=== PATIENT | female | born 1990 | race Caucasian/White ===

== ENCOUNTER 2022-09-10 05:21 | Emergency (ER) | payer OTHER, SELFPAY ==
--- NOTE | ~2022-09-10 | CT_ITS ---
EXAMINATION: CT abdomen pelvis wo con DATE: 09/10/2022 06:41 INDICATION: Left flank pain. TECHNIQUE: Computed tomography (CT) of the abdomen and pelvis was performed without intravenous contr ast. Automated exposure control and iterative reconstruction technique were employed. The dose-length product was 246.05 mGy-cm. COMPARISON: CT abdomen and pelvis 09/25/2019 FINDINGS: The visualized portions of the lung bases are clear without pneumonia or pleural effusion. The heart size is normal. No pericardial effusion. The liver is normal. There are changes of cholecys tectomy. The spleen, pancreas, adrenal glands, and right kidney are normal. There are 4 stones in lef t kidney measuring up to 5 mm. There is mild left hydronephrosis. There is an 11 mm stone in proximal left ureter. There are no dilated loops of bowel. The appendix is normal. There are no pathologicall y enlarged lymph nodes. There is physiologic fluid in the pelvis. There is mild lumbar spondylosis. IMPRESSION: 1. 11 mm stone in proximal left ureter with mild left hydronephrosis. 2. Nonobstructing left kidney stones. Reviewed, dictated and finalized at location A. TH CARE SANITARY TECHNICIAN
--- NOTE | ~2022-09-10 | XR_ITS ---
EXAMINATION: XR abdomen/kub 1V DATE: 09/10/2022 09:01 INDICATION: Urolithiasis. TECHNIQUE: A supine view of the abdomen on 3 radiographs was obtained. COMPARISON: CT abdomen and pelvis 09/10/2022 FINDINGS: There are no dilated loops of bowel. Surgical clips in the right upper quadrant are likely from cholecystectomy. There is an 11 mm stone in proximal left ureter. There are multiple stones in l eft kidney measuring up to 5 mm. IMPRESSION: 1. 11 mm stone in proximal left ureter. 2. Left kidney stones. Reviewed, dictated and finalized at location A. ERMAN
[2022-09-10 05:25] VITALS: BP 156/115; PULSE 98; RESP 22; TEMP 35.8; O2SAT 100
[2022-09-10] MEDS: ONDANSETRON INJ 4 MG/2 ML VIAL IV PUSH ×2 (05:30→06:42)
[2022-09-10] MEDS: SODIUM CHLORIDE 0.9% IV 1,000 ML 999 ML IV CONT (05:31)
[2022-09-10] MEDS: MORPHINE SULFATE (*CRX) 2 MG/ML INJ IV PUSH ×3 (05:32→06:42)
--- NOTE | 2022-09-10 05:42 | PC.NURSE ---
PT HAS CALMED DOWN, LIGHTS OFF, COOL WASH CLOTH PROVIDED, MOTHER AT BEDSIDE. IVF INFUSING ORDERED WITHOUT DIFFICULTY. PT REPORTS IT'S STUCK IN THIS ONE SPOT. WILL CONTINUE TO MONITOR.
--- NOTE | 2022-09-10 05:45 | PC.NURSE ---
PT IS CRYING AGAIN, ROLLING AROUND ON STRETCHER, ERP NOTIFIED. VO FOR 2MG MORPHINE GIVEN. WILL CONTINUE TO MONITOR.
[2022-09-10 05:55] LABS: Basophils Absolute Auto 0.07 K/mm3 (0.00-0.10); Basophils Percent Auto 0.7 % (0.0-1.0); Eosinophils Absolute Auto 0.42 K/mm3 (0.02-0.50); Eosinophils Percent Auto 4.2 % (1.0-6.0); Hemoglobin 12.1 g/dL (12.0-15.0); Immature Granulocyte Absolute 0.02 K/mm3 (0.00-0.00); Immature Granulocyte Percent A 0.2 % (0.0-0.0); Lymphocytes Absolute Auto 3.05 K/mm3 (1.10-4.50); Lymphocytes Percent Auto 30.3 % (18.0-42.0); Mean Corpuscular HGB Conc 33.6 g/dL (32.0-36.0); Mean Corpuscular Hemoglobin 30.7 pg (27.0-31.0); Mean Corpuscular Volume 91.4 fL (78.0-102.0); Monocytes Absolute Auto 0.76 K/mm3 (0.10-0.90); Monocytes Percent Auto 7.5 % (2.0-11.0); Neutrophils Absolute Auto 5.8 K/mm3 (1.7-7.2); Neutrophils Percent Auto 57.1 % (50.0-70.0); Platelet Count Result 334 K/mm3 (150-420); Red Blood Count 3.94 M/mm3 (4.20-5.40); Red Cell Distribution Width 13.3 % (11.6-14.4); White Blood Count 10.1 K/mm3 (4.8-10.8)
[2022-09-10 06:06] LABS: Appearance Urine Slightly Cloudy (Clear); Bilirubin Urine Negative (Negative); Blood Urine 2+ (Negative); Glucose Urine UA Negative (Negative); Ketones Urine Trace (Negative); Leukocyte Esterase Ur Trace (Negative); Nitrate Urine Negative (Negative); Protein Urine Negative (Negative); Specific Grav Ur 1.015 (1.010-1.020); Urobilinogen Urine 0.2 mg/dL (0.2-1.0)
[2022-09-10 06:07] LABS: SPREG INTERNAL CONTROL Positive; Serum Qual hCG Negative
[2022-09-10 06:10] LABS: Alanine Aminotransferase 17 U/L (14-59); Albumin Level 3.6 g/dL (3.4-5.0); Alkaline Phosphatase 62 U/L (46-116); Anion Gap 12 mmol/L (8-16); Aspartate Amino Transferase 17 U/L (15-37); Bilirubin,Total 0.4 mg/dL (0.00-1.00); Blood Urea Nitrogen 20 mg/dL (7-18); Calcium 8.8 mg/dL (8.5-10.1); Carbon Dioxide 23 mmol/L (21-32); Chloride 105 mmol/L (98-108); Estimated CRCL calculation 71 ml/min; Estimated Glomerular Filt Rate > 60; Glucose 93 mg/dL (70-99); Osmolality Calculated 292 mOsm/kg (285-295); Potassium 3.6 mmol/L (3.5-5.1); Sodium 140 mmol/L (136-145); Total Protein 6.7 g/dL (6.4-8.2)
[2022-09-10 06:14] LABS: Lipase 99 U/L (73-393)
[2022-09-10 06:15] LABS: Lactic Acid Reflex 1.2 mmol/L (0.4-2.0)
[2022-09-10 06:15] LABS: Add Urine Microscopic? YES; Color Urine Light Yellow (Yellow); RBC Urine 21-50 /hpf (0-2); Squamous Epithelial Cell Urine Few /hpf (Few); WBC Urine 0-3 /hpf (0-3)
[2022-09-10 06:16] LABS: Bacteria Urine 2+ /hpf
[2022-09-10 06:19] VITALS: BP 158/100; PULSE 88; RESP 18; O2SAT 98
--- NOTE | 2022-09-10 06:19 | PC.NURSE ---
PT WAS UP TO RR WITHOUT DIFFICULTY. MOTHER AT BEDSIDE. CT NOTIFIED PT IS READY FOR SCAN. WILL CONTINUE TO MONITOR.
--- NOTE | 2022-09-10 06:20 | ED.ABDPAIN ---
HPI - Abdominal Pain General Chief Complaint: Urogenital-Female Stated Complaint: lower flank kidney pain Time Seen by Provider: 09/10/22 05:23 Source: patient and RN notes reviewed Mode of arrival: ambulatory Limitations: no limitations History of Present Illness HPI narrative: left flank pain MD elicited complaint: flank pain Onset (ago): hour(s) (2) Pain Consistency: constant and colicky Location: L flank Severity: moderate Pain scale (0-10): 7 Quality: cramping and aching Radiation: back Exacerbating factors: nothing Relieving factors: nothing Associated symptoms: nausea Related Data Patient : No Home Medications Medication Instructions Recorded Confirmed Synthroid 100 mcg PO DAILY 09/25/19 09/10/22 Zoloft 75 mg PO DAILY 09/25/19 09/10/22 ferrous fumarate 325 mg (106 mg 325 mg PO DAILY 09/10/22 09/10/22 iron) tablet Allergies Allergy/AdvReac Type Severity Reaction Status Date / Time Penicillins Allergy Severe Difficulty Verified 09/10/22 12:14 Breathing Review of Systems Review of Systems: All systems reviewed & are unremarkable except as noted in HPI and below Constitutional: Constitutional: Reports no additional constitutional complaints Eyes: Eyes: Reports no additional eye complaints ENT: Reports system reviewed and no additional complaints, except as documented Cardiovascular: Cardiovascular: Reports no additional cardiovascular complaints Respiratory: Respiratory: Reports no additional respiratory complaints Gastrointestinal: Gastrointestinal: Reports no additional gastrointestinal complaints Genitourinary: Genitourinary: Reports no additional female genitourinary complaints and Reports flank pain Musculoskeletal: Musculoskeletal: Reports no additional musculoskeletal complaints Integumentary/Breasts: Skin/Breast: Reports system reviewed and no additional complaints, except as docu Neurologic: Reports system reviewed and no additional complaints, except as documented Psychiatric: Psychiatric: Reports no additional psychiatric complaints Endocrine: Endocrine: Reports no additional endocrine complaints Hematologic/Lymphatic: Hematologic/Lymphatic: Reports no additional hematologic/lymphatic complaints Allergic/Immunologic: Allergic/Immunologic: Reports no additional allergic/immunologic complaints [facility] Past Medical History Medical History (Updated 09/11/22 @ 10:54 by Lam Pandey MD) Depression Flank pain Hypothyroid Family History Family History Mother Hypertension Grandparent Cerebrovascular accident Grandparent Diabetes mellitus Grandparent Multiple myeloma Father Multiple myeloma Other Testicular cancer Social History Social History Smoking packs per day: 0.5 Smoking cigarettes per day: 10.0 Years smoked: 2 Smoking pack-years: 1.00 Smoking status: Former smoker Second hand tobacco smoke exposure: No Alcohol intake: current Drinks per week: 1 Substance use: current Substance use type: marijuana Lack of Transportation: No Lack of Food: Never True Current Housing: I Have Housing Concerned About Future Housing: No Difficulty Paying Gas/Electric Bills: No Difficulty Paying for Meds: No Currently Unemployed: No Education: Bachelor's Degree Difficulty w/ Childcare or Family Care: No Gender identity (if verbalized by the patient): Female Spiritual care concerns: No Agree to blood pr
--- NOTE | 2022-09-10 06:30 | PC.NURSE ---
PT IN CT AT THIS TIME, MOTHER HAS LEFT, IS TO RETURN. WILL CONTINUE TO MONITOR. CLONIDINE HELD AT THIS TIME, DUE TO BP COMING DOWN, WHEN PAIN COMES DOWN. WILL CONTINUE TO MONITOR.
--- NOTE | 2022-09-10 06:43 | PC.NURSE ---
pt returns from ct moaning, restless, nauseated, and reporting pain is worse. medications were administered as ordered without difficulty. will continue to monitor.
--- NOTE | 2022-09-10 06:51 | PC.NURSE ---
PT IS ANXIOUS, REPORTING IT HURTS TO BREATHE, FLAILING ABOUT ON STRETCHER, HYPERVENTILATING. PT PLACED ON O2 @ 2L. ERP IS NOTIFIED. PT REPORTS SHE NEEDS TO URINATE. BEDSIDE COMMODE PLACED AT BEDSIDE. PT REPORTS SX ARE RESOLVING, LASTING APPROX 3-4 MINUTES. PT IS THEN ASSISTED TO COMMODE. WILL CONTINUE TO MONITOR. PT THEN REMOVES HER O2.
--- NOTE | 2022-09-10 06:58 | PC.NURSE ---
PT DECLINED HER CLONIDINE, REPORTS SHE DOES NOT HAVE ANY BP ISSUES, REPORTS IT IS BECAUSE SHE IS IN PAIN. CALLED CORWIN, ENERGY CONSERVATION DIRECTOR AT [place] FOR POSSIBLE TRANSFER, SHE IS TO RETURN CALL. WILL CONTINUE TO MONITOR.
[2022-09-10 07:08] VITALS: BP 153/103; PULSE 77; RESP 18; O2SAT 100
--- NOTE | 2022-09-10 07:09 | PC.NURSE ---
REPORT TO HELADIO SCHERER, MOTHER AND PT ARE AWARE OF PLAN OF CARE.
--- NOTE | 2022-09-10 07:35 | PC.NURSE ---
Bryan Jonesshipyard painting supervisor from [place] called, she has been on the phone with [facility] since 07 and got disconnected. urologist is in surgery at this time and office opens at 0800. will continue to try and make contact.
[2022-09-10] MEDS: HYDROmorphone HCL INJ (*CRX) 2 MG/ML VIAL 0.5 MG IV PUSH (08:28)
[2022-09-10 08:34] VITALS: BP 136/96; PULSE 66; RESP 16; O2SAT 100
--- NOTE | 2022-09-10 08:39 | PC.NURSE ---
[facility] called back and is talking to [facility] at this time.
[2022-09-10] MEDS: levoFLOXacin 500 MG/D5W 100 ML 500 MG/100 ML BAG 100 MG IVPB (09:05)
[2022-09-10 09:46] LABS: SARS-CoV-2 Ag Negative (Negative)
[2022-09-10] MEDS: METOCLOPRAMIDE HCL INJ 10 MG/2 ML VIAL IV PUSH (09:59)
[2022-09-10 10:27] VITALS: BP 136/96; PULSE 67; RESP 16; TEMP 36.8; O2SAT 100
== END 2022-09-10 10:34 | disposition short-term general hospital (02) ==
PROVIDERS: Emergency Medicine; Emergency Provider Emergency Medicine
DX: N20.9 Urinary calculus, unspecified (principal); Z20.822 Contact with and (suspected) exposure to COVID-19
CPT/HCPCS: 36415; 74018; 74176; 80053; 81001; 83605; 83690; 84703; 85025; 87426; 96361; 96365; 96375; 96376; 99285; C9803; J1170; J1956; J2270; J2405; J2765; J7030

== ENCOUNTER 2022-09-10 11:06 | Inpatient (IN) | payer OTHER, SELFPAY ==
[2022-09-10] VITALS (14 sets, daily range): BP systolic 100–147; BP diastolic 65–101; PULSE 51–77; RESP 13–22; TEMP 35.8–36.6; O2SAT 95–100; BMI 28.6
--- NOTE | ~2022-09-10 | XR_ITS ---
EXAMINATION: XR retrograde pyelo w/stent LT INDICATION: Cystoscopy with left-sided retrograde and stent placement TECHNIQUE: 28 intraoperative fluoroscopic images are submitted for review. Total fluoroscopic time wa s 29.8 seconds. COMPARISON: None available FINDINGS: Retrograde pyelogram demonstrates a stone in the left renal pelvis. A left internal uretera l stent is placed in expected position. Please refer to procedure note for full details. IMPRESSION: 1. Left internal ureteral stent in expected position. Please refer to procedure note for full details . Reviewed, dictated and finalized at location F. [employer] SUPER[employer] IMPRESSION: 1. Left internal ureteral stent in expected position. Please refer to procedure note for full details.
--- NOTE | 2022-09-10 11:17 | ADMGEN ---
This patient, Jocelyn Arriaza, was admitted to [facility] Surg Room 316-02. Patient/family oriented to hospital policies and general routines including ID bracelet, bed and alarms, visiting hours, pain management, procedures, bathroom and other care routines, personal items, smoking policy, room service/diet, and visiting hours. Information on how to activate the Rapid Response Team has been discussed. Patient/Family are encouraged to report perceived risks to care and to ask questions if they do not understand what they are told or what they should do.
--- OUTSIDE RECORDS SUMMARY | 2022-09-10 11:33 | XMS_ITS | Continuity of Care Document ---
:1990 Author Organization [facility] Care Team Providers Name Role Phone [facility] Unavailable Unavailable Medications Combined list of outpatient medications from Department of Defense and Veterans Affairs facilities. Medications provided include 1) outpatient medications from the last 15 months, and 2) patient-reported medications. Medication Details Route Status Patient Prescription Prescription Last Ordering Order Source Instructions Expires Number Dispense Provider Date Date FLUCELVAX Active [id number] [facility] 07/26 / Pharmac QUAD 1 R, 2020 y Data [id number] Transac (flu tion vaccine Service quad Facilit [id number](2 y years and older)cell derived/PF) , 60MCG/.5ML, SYR[employer] .5 ml SYRINGE HYDROCORTIS Active [id number] [facility] / Pharmac ONE 2020 y Data (HYDROCORTI Transac SONE), tion 2.5%, Service CREAM(GM), Facilit TOPICAL, y [employer] 28 g TUBE LEVOTHYROXI Active [id number] [facility] / Pharmac
[2022-09-10] MEDS: SODIUM CHLORIDE 0.9% IV 1,000 ML 125 ML IV CONT (12:06)
[2022-09-10] MEDS: MORPHINE SULFATE (*CRX) 2 MG/ML INJ 1 MG IV PUSH (12:07)
[2022-09-10] MEDS: fentaNYL CITRATE INJ (*CRX) 100 MCG/2 ML VIAL 50 MCG IV PUSH ×2 (13:23→14:32)
--- NOTE | 2022-09-10 13:50 | PM.IMHP ---
H&P: HPI History of Present Illness Date/Time: 09/10/22 13:50 Chief Complaint: patient is a 32-year-old with back pain Narrative: patient 32-year-old who came to the hospital complaining of back/ left-sided flank pain. Pain started last night and patient post initially thought it was from constipation. Patient has history of anemia for which she takes iron pills but as the pain continued to get worse she came to the urgent care center. Patient was initially scanned and noted to have an 11 mm stone in the left ureter. Patient denied any urgency frequency of urination no hematuria no vaginal discharge no history of PID no history of an ovarian cyst. No fever chills nausea vomiting diarrhea. Review of Systems Review of Systems: All systems reviewed & are unremarkable except as noted in HPI and below PMFSH Past Medical History Medical History (Updated 09/10/22 @ 13:53 by Lam Pandey MD) Depression Flank pain HTN (hypertension) Hypothyroid Family History Family History Mother Hypertension Grandparent Cerebrovascular accident Grandparent Diabetes mellitus Grandparent Multiple myeloma Father Multiple myeloma Other Testicular cancer Social History Social History Smoking packs per day: 0.5 Smoking cigarettes per day: 10.0 Years smoked: 2 Smoking pack-years: 1.00 Smoking status: Former smoker Second hand tobacco smoke exposure: No Alcohol intake: current Drinks per week: 1 Substance use: current Substance use type: marijuana Lack of Transportation: No Lack of Food: Never True Current Housing: I Have Housing Concerned About Future Housing: No Difficulty Paying Gas/Electric Bills: No Difficulty Paying for Meds: No Currently Unemployed: No Education: Bachelor's Degree Difficulty w/ Childcare or Family Care: No Gender identity (if verbalized by the patient): Female Spiritual care concerns: No Agree to blood products: Yes Meds Home Medications and Allergies Home Medications Medication Instructions Recorded Confirmed Type Synthroid 100 mcg PO DAILY 09/25/19 09/10/22 History Zoloft 75 mg PO DAILY 09/25/19 09/10/22 History ferrous fumarate 325 mg (106 mg 325 mg PO DAILY 09/10/22 09/10/22 History iron) tablet Allergies Allergy/AdvReac Type Severity Reaction Status Date / Time Penicillins Allergy Severe Difficulty Verified 09/10/22 12:14 Breathing Vital Signs Vital Signs - 24 hr 09/10/22 12:02 09/10/22 12:03 Temperature 36.6 C Pulse Rate 66 66 Respiratory Rate 18 Blood Pressure 142/101 H Pulse Oximetry 100 Oxygen Delivery Room Air Exam Narrative: GENERAL: Well appearing, well-nourished, non-toxic, in no acute distress. HEAD: Normocephalic, atraumatic. NECK: Supple. No adenopathy, no masses. RESPIRATORY: Airway patent, respirations nonlabored. Clear to auscultation bilaterally, no rales, rhonchi, wheezing. CARDIOVASCULAR: Regular rate and rhythm without murmurs, rubs, or gallops. Peripheral pulses 2+ and equal bilaterally. ABDOMINAL: Soft, nontender, nondistended, no hepatosplenomegaly. Normoactive BS. MUSCULOSKELETAL: no Epigastric and no hypochondrial tenderness SKIN: Warm, dry, normal color. No rashes. NEURO: A&O X3. Moves all extremities PSYCHIATRIC: Appropriate mood and affect. Normal interaction. Assessment and Plan Assessment and plan (1) Urolithiasis: Qualifiers: Urinary calculus location: ureter Qualified Code(s): N20.1 - Calculus of ureter Code(s): N20.9 - Urinary calculus, unspecified Status: Acute (2) Flank pain: Code(s): R10.9 - Unspecified abdominal pain Status: Acute (3) Depression: Code(s): F32.9 - Major depressive disorder, single episode, unspecified Status: Acute (4) Hypothyroid: Code(s): E03.9 - Hypothyroidism, unspeci
[2022-09-10] MEDS: ONDANSETRON INJ 4 MG/2 ML VIAL IV PUSH (14:29)
--- NOTE | 2022-09-10 14:47 | WPDANESEPPF ---
Anes - Initial Pre Proc Eval Procedure: Operation Date: 09/11/22 11:30 Proposed Procedures p Left Extracorporeal Shock Wave Lithotripsy - Dayton Miller MD <Uli Smith MD - Last Filed: 09/11/22 10:24> Date/Time: 09/10/22 14:47 <Uli Smith MD - Last Filed: 09/11/22 10:24> Surgeon: Lam Pandey MD <Uli Smith MD - Last Filed: 09/11/22 10:24> Pre Op Diagnosis: KIDNEY STONE <Uli Smith MD - Last Filed: 09/11/22 10:24> Patient Data Age: 32 Gender: F Height: 1.65 m Weight: 78 kg <Uli Smith MD - Last Filed: 09/11/22 10:24> Last Vital Signs Temp 35.9 C L 09/10/22 14:00 Pulse 67 09/10/22 14:00 Resp 18 09/10/22 14:00 BP 125/75 09/10/22 14:00 Pulse Ox 97 09/10/22 14:00 O2 Del Method Room Air 09/10/22 12:03 <Uli Smith MD - Last Filed: 09/11/22 10:24> Allergies Allergy/AdvReac Type Severity Reaction Status Date / Time Penicillins Allergy Severe Difficulty Verified 09/10/22 12:14 Breathing <Uli Smith MD - Last Filed: 09/11/22 10:24> Home Medications Medication Instructions Recorded Confirmed Type Synthroid 100 mcg PO DAILY 09/25/19 09/10/22 History Zoloft 75 mg PO DAILY 09/25/19 09/10/22 History ferrous fumarate 325 mg (106 mg 325 mg PO DAILY 09/10/22 09/10/22 History iron) tablet <Uli Smith MD - Last Filed: 09/11/22 10:24> Patient hx anesthesia problems: none <Tino Hodges DO - Last Filed: 09/10/22 16:24> Family hx anesthesia problems: none <Tino Hodges DO - Last Filed: 09/10/22 16:24> Results Review: All pre-operative results and documents have been reviewed as part of the pre-operative evaluation. <Uli Smith MD - Last Filed: 09/11/22 10:24> [facility] Past Medical History Medical History: Medical History (Updated 09/11/22 @ 00:01 by Josh Hector) Depression Flank pain Hypothyroid <Uli Smith MD - Last Filed: 09/11/22 10:24> Family History Family History: Family History Mother Hypertension Grandparent Cerebrovascular accident Grandparent Diabetes mellitus Grandparent Multiple myeloma Father Multiple myeloma Other Testicular cancer <Uli Smith MD - Last Filed: 09/11/22 10:24> Social History Social History: Social History Smoking packs per day: 0.5 Smoking cigarettes per day: 10.0 Years smoked: 2 Smoking pack-years: 1.00 Smoking status: Former smoker Second hand tobacco smoke exposure: No Alcohol intake: current Drinks per week: 1 Substance use: current Substance use type: marijuana Lack of Transportation: No Lack of Food: Never True Current Housing: I Have Housing Concerned About Future Housing: No Difficulty Paying Gas/Electric Bills: No Difficulty Paying for Meds: No Currently Unemployed: No Education: Bachelor's Degree Difficulty w/ Childcare or Family Care: No Gender identity (if verbalized by the patient): Female Spiritual care concerns: No Agree to blood products: Yes <Uli Smith MD - Last Filed: 09/11/22 10:24> Anes - Eval Final PreProcedure Day of Procedure 09/10/22 14:47 <Uli Smith MD - Last Filed: 09/11/22 10:24> Patient weight: obese <Uli Smith MD - Last Filed: 09/11/22 10:24> Heart: regular rate and rhythm <Uli Smith MD - Last Filed: 09/11/22 10:24> Lungs: clear to auscultation <Uli Smith MD - Last Filed: 09/11/22 10:24> Airway: Mallampati scale class II <Uli Smith MD - Last Filed: 09/11/22 10:24> Neurological: alert and oriented <Uli Smith MD - Last Filed: 09/11/22 10:24> Last oral intake: >/= 8 hours <Uli Smith MD - Last Filed: 09/11/22 10:24> ASA classification:
[2022-09-10 14:56] LABS: Hematocrit 39.3 % (37.0-47.0); Hemoglobin 13.2 g/dL (12.0-15.0); Mean Corpuscular HGB Conc 33.6 g/dl (32-36); Mean Corpuscular Hemoglobin 29.8 pg (26-34); Mean Corpuscular Volume 88.7 fl (80-100); Mean Platelet Volume 9.2 fl (7.4-10.4); Platelet Count Result 343 k/mm3 (150-375); Red Blood Count 4.43 M/mm3 (4.2-5.4); Red Cell Distribution Width 13.3 % (11.5-14.5); White Blood Count 13.3 K/mm3 (4.5-10.0)
[2022-09-10 15:05] LABS: Alanine Aminotransferase 24 U/L (6-35); Albumin Level 4.5 g/dL (3.5-5.1); Alkaline Phosphatase 69 U/L (38-126); Anion Gap 15 mmol/L (8-16); Aspartate Amino Transferase 31 U/L (14-36); Bilirubin,Total 0.9 mg/dL (0.2-1.3); Blood Urea Nitrogen 16 mg/dL (7-17); Carbon Dioxide 20 mmol/L (22-30); Chloride 104 mmol/L (98-107); Estimated CRCL calculation 67 ml/min; Estimated Glomerular Filt Rate 58; Glucose 92 mg/dL (65-110); Potassium 3.6 mmol/L (3.4-5.0); Sodium 139 mmol/L (137-145)
--- NOTE | 2022-09-10 15:08 | WPDURCON ---
Assessment and Plan Assessment and plan (1) Urolithiasis: Qualifiers: Urinary calculus location: ureter Qualified Code(s): N20.1 - Calculus of ureter Code(s): N20.9 - Urinary calculus, unspecified Status: Acute Assessment and Plan: Obtain Consent:Cystoscopy with left stent placement, left retrograde pyelogram. Left ESWL Keep NPO, NPO after midnight. Ok to alternate between Valium 5mg and Fentanyl 50mg PRN. (2) Flank pain: Code(s): R10.9 - Unspecified abdominal pain Status: Acute Urology Consult Note HPI Date Seen: 09/10/22 Time Seen: 13:30 Requesting Physician: Lam Pandey MD Primary Care Provider: VICTOR Consult Narrative Reason for consult: Left Proximal Ureteral Stone Narrative: Jocelyn Arriaza is a 32 year old female who presented to the ER in [place] this morning with acute onset of left flank pain that radiates to the left inguinal canal. This is accompanied by nausea and vomiting. She denies dysuria, frequency, urgency. She has a WBC of 11.9, creatinine of 1.03. Her UA shows RBC's and trace leukocytes. A urine culture is pending. She had a CT scan which showed a left UPJ stone measuring 11mm that is visible on KUB. She was transferred to [facility] for further evaluation. She has uncontrolled pain with this stone, and has been given Morphine and Dilaudid, which both caused chest pain and facial pain. The ambulance then gave her 75mg of Fentanyl which helped for a short time then wore off quickly. She was then given IV Tylenol and Fentanyl again on the floor when she arrived and she continued to have severe pain. Review of Systems Cardiovascular: Cardiovascular: Denies chest pain Respiratory: Respiratory: Reports no additional respiratory complaints Gastrointestinal: Gastrointestinal: Reports abdominal pain, Reports nausea and Reports vomiting Genitourinary: Genitourinary: Denies hematuria, Denies nocturia, Denies dysuria, Denies pelvic pain, Reports flank pain, Denies urinary hesitancy and Denies urinary urgency [facility] Past Medical History Medical History Depression Flank pain HTN (hypertension) Hypothyroid Family History Family History Mother Hypertension Grandparent Cerebrovascular accident Grandparent Diabetes mellitus Grandparent Multiple myeloma Father Multiple myeloma Other Testicular cancer Social History Social History Smoking packs per day: 0.5 Smoking cigarettes per day: 10.0 Years smoked: 2 Smoking pack-years: 1.00 Smoking status: Former smoker Second hand tobacco smoke exposure: No Alcohol intake: current Drinks per week: 1 Substance use: current Substance use type: marijuana Lack of Transportation: No Lack of Food: Never True Current Housing: I Have Housing Concerned About Future Housing: No Difficulty Paying Gas/Electric Bills: No Difficulty Paying for Meds: No Currently Unemployed: No Education: Bachelor's Degree Difficulty w/ Childcare or Family Care: No Gender identity (if verbalized by the patient): Female Spiritual care concerns: No Agree to blood products: Yes Meds Home Medications and Allergies Home Medications Medication Instructions Recorded Confirmed Type Synthroid 100 mcg PO DAILY 09/25/19 09/10/22 History Zoloft 75 mg PO DAILY 09/25/19 09/10/22 History ferrous fumarate 325 mg (106 mg 325 mg PO DAILY 09/10/22 09/10/22 History iron) tablet Allergies Allergy/AdvReac Type Severity Reaction Status Date / Time Penicillins Allergy Severe Difficulty Verified 09/10/22 12:14 Breathing Vital Signs Vital Signs - 24 hr 09/10/22 12:02 09/10/22 12:03 09/10/22 14:00 Temperature 97.9 F 96.6 F L Pulse Rate 66 66 67 Respiratory Rate 18 18 Blood Pressur
[2022-09-10 15:11] LABS: Appearance Urine Clear (Clear); Bilirubin Urine Negative (Negative); Blood Urine 2+ (Negative); Color Urine Yellow (Yellow); Glucose Urine UA Negative (Negative); Ketones Urine 2+ mg/dL (Negative); Leukocyte Esterase Ur Negative LEU/UL (Negative); Nitrate Urine Negative (Negative); Protein Urine Trace mg/dL (Negative); Specific Grav Ur 1.025 (1.001-1.035); Urobilinogen Urine 0.2 mg/dL (<2.0)
[2022-09-10 15:18] LABS: RBC Urine 51-75 /hpf (0-2); Squamous Epithelial Cell Urine Rare /hpf (Few)
[2022-09-10 15:19] LABS: Add Urine Microscopic? YES
[2022-09-10] MEDS: diazePAM INJ (*CRX) 10 MG/2 ML SYRINGE 5 MG IV PUSH (15:22)
--- NOTE | 2022-09-10 15:41 | WPDANESEPPF ---
Anes - Initial Pre Proc Eval Procedure: Operation Date: 09/10/22 17:30 Proposed Procedures p Cystoscopy, Left Stent Placement - Dayton Miller MD Date/Time: 09/10/22 15:41 Surgeon: Lam Pandey MD Pre Op Diagnosis: KIDNEY STONE Patient Data Age: 32 Gender: F Height: 1.65 m Weight: 78 kg Last Vital Signs Temp 36.2 C L 09/10/22 14:59 Pulse 77 09/10/22 14:59 Resp 22 H 09/10/22 14:59 BP 141/98 H 09/10/22 14:59 Pulse Ox 100 09/10/22 14:59 O2 Del Method Room Air 09/10/22 12:03 Allergies Allergy/AdvReac Type Severity Reaction Status Date / Time Penicillins Allergy Severe Difficulty Verified 09/10/22 12:14 Breathing Home Medications Medication Instructions Recorded Confirmed Type Synthroid 100 mcg PO DAILY 09/25/19 09/10/22 History Zoloft 75 mg PO DAILY 09/25/19 09/10/22 History ferrous fumarate 325 mg (106 mg 325 mg PO DAILY 09/10/22 09/10/22 History iron) tablet Laboratory Tests 09/10/22 09/10/22 09/10/22 14:41 14:41 14:41 WBC 13.3 K/mm3 H K/mm3 (4.5-10.0) RBC 4.43 M/mm3 M/mm3 (4.2-5.4) Hgb 13.2 g/dL g/dL (12.0-15.0) Hct 39.3 % % (37.0-47.0) MCV 88.7 fl fl (80-100) MCH 29.8 pg pg (26-34) MCHC 33.6 g/dl g/dl (32-36) RDW 13.3 % % (11.5-14.5) Plt Count 343 k/mm3 k/mm3 (150-375) MPV 9.2 fl fl (7.4-10.4) Sodium 139 mmol/L mmol/L (137-145) Potassium 3.6 mmol/L mmol/L (3.4-5.0) Chloride 104 mmol/L mmol/L (98-107) Carbon Dioxide 20 mmol/L L mmol/L (22-30) Anion Gap 15 mmol/L mmol/L (8-16) BUN 16 mg/dL mg/dL (7-17) Creatinine 1.10 mg/dL H mg/dL (0.7-1.0) Estim Creat Clear Calc 67 ml/min ml/min Estimated GFR 58 L (59 - ) Glucose 92 mg/dL mg/dL (65-110) Calcium 9.0 mg/dL mg/dL (8.4-10.2) Total Bilirubin 0.9 mg/dL mg/dL (0.2-1.3) AST 31 U/L U/L (14-36) ALT 24 U/L U/L (6-35) Alkaline Phosphatase 69 U/L U/L (38-126) Total Protein 7.0 g/dL g/dL (6.3-8.2) Albumin 4.5 g/dL g/dL (3.5-5.1) TSH (Reflex) Pending Urine Color Urine Appearance Urine pH Ur Specific [place] Urine Protein Urine Glucose (UA) Urine Ketones Ur Blood (Man) Urine Nitrate Urine Bilirubin Urine Urobilinogen Leukocyte Esterase Rfl Urine RBC Urine WBC Ur Squamous Epith Cells 09/10/22 15:01 WBC RBC Hgb Hct MCV MCH MCHC RDW Plt Count MPV Sodium Potassium Chloride Carbon Dioxide Anion Gap BUN Creatinine Estim Creat Clear Calc Estimated GFR Glucose Calcium Total Bilirubin AST ALT Alkaline Phosphatase Total Protein Albumin TSH (Reflex) Urine Color Yellow (Yellow) Urine Appearance Clear (Clear) Urine pH 7.0 (5.0-9.0) Ur Specific [place] 1.025 (1.001-1.035) Urine Protein Trace mg/dL mg/dL (Negative) Urine Glucose (UA) Negative mg/dL mg/dL (Negative) Urine Ketones 2+ mg/dL H mg/dL (Negative) Ur Blood (Man) 2+ H (Negative) Urine Nitrate Negative (Negative) Urine Bilirubin Negative (Negative) Urine Urobilinogen 0.2 mg/dL mg/dL (<2.0) Leukocyte Esterase Rfl Negative RACHEAL/UL RACHEAL/UL (Negative) Urine RBC 51-75 /hpf H /hpf (0-2) Urine WBC 7-9 /hpf H /hpf Ur Squamous Epith Cells Rare /hpf /hpf (Few) Results Review: All pre-operative results and documents have been reviewed as part of the pre-operative evaluation. [facility]
--- NOTE | 2022-09-10 15:50 | PC.NURSE ---
To OR via stretcher.
[2022-09-10] MEDS: LACTATED RINGERS 1,000 ML 30 ML IV CONT ×2 (16:12→17:47)
--- NOTE | 2022-09-10 17:09 | WPDHPUPDATE1 ---
History and Physical Update Update Date/Time: 09/10/22 17:09 History and Physical has been reviewed, including an updated exam of the patient. There are NO changes in the patient's condition. Risks, benefits, and alternatives have been discussed and questions answered. Patient agrees to proceed with procedure.
[2022-09-10] MEDS: ceFAZolin 2 GM/D5W 50 ML 2 GM/50 ML BAG IVPB (17:17)
[2022-09-10] MEDS: LIDOCAINE HCL 2% GEL UROJET 10 ML PKG MUCOUS MEM (17:25)
--- NOTE | 2022-09-10 17:34 | W.PM.PROC2 ---
Procedure Note - Detailed Date of Procedure 09/10/22 Pre-op Diagnosis Left ureteral stone Post-op Diagnosis Same Procedure Performed cystoscopy, left retrograde pyelography and left ureteral stent placement Surgeon Dayton Miller MD Anesthesia General Description of Procedure after the uneventful induction of a general LMA anesthetic was placed the draped in routine sterile fashion while in a dorsal lithotomy position. Cystoscopy is undertaken with a 19 F rigid cystoscope. Bladder neck and urethra endoscopically normal. There was no intravesical foreign body neoplasm. A 0.035 in glidewire was advanced beyond the calcified 11 mm left proximal ureteral stone into the renal pelvis. The angiographic catheter was used to obtain a retrograde pyelogram and ensure appropriate positioning of a 4.8 F variable length double-J ureteral stent. Scopes and wires were removed. Urine Output 300 Drains Yes Packing No Pathology None sent Complications No immediate complications
--- NOTE | 2022-09-10 18:25 | PC.NURSE ---
Back from OR via stretcher. Walked to the restroom and voided.
[2022-09-10 18:27] LABS: Free T4 Free Thyroxine Reflex 1.51 ng/dL (0.78-2.19)
[2022-09-10] MEDS: DOCUSATE SODIUM 100 MG CAPSULE PO (18:34)
[2022-09-10 20:00] LABS: Total Triiodothyronine (T3) 1.12 NG/ML (0.97-1.69)
[2022-09-10] MEDS: HYDROmorphone HCL INJ (*CRX) 1 MG/ML SYR 0.5 MG IV PUSH (23:36)
[2022-09-11] VITALS (12 sets, daily range): BP systolic 110–135; BP diastolic 69–93; PULSE 52–88; RESP 11–18; TEMP 36.5–37; O2SAT 98–100
[2022-09-11] MEDS: ACETAMINOPHEN 325 MG TABLET 650 MG PO ×2 (04:00→14:52)
[2022-09-11] MEDS: HYDROmorphone HCL INJ (*CRX) 1 MG/ML SYR 0.5 MG IV PUSH ×3 (06:44→11:25)
[2022-09-11] MEDS: SODIUM CHLORIDE 0.9% IV 1,000 ML 125 ML IV CONT (06:47)
[2022-09-11] MEDS: LEVOTHYROXINE SODIUM 100 MCG TABLET PO (06:48)
--- NOTE | 2022-09-11 10:52 | PM.IMPN ---
Progress Note: A&P Assessment and Plan (1) Renal calculus, left: Code(s): N20.0 - Calculus of kidney Status: Acute (2) Depression: Code(s): F32.9 - Major depressive disorder, single episode, unspecified Status: Acute (3) Hypothyroid: Code(s): E03.9 - Hypothyroidism, unspecified Status: Acute (4) Flank pain: Code(s): R10.9 - Unspecified abdominal pain Status: Acute Plan Patient had stent placement yesterday going for lithotripsy today patient is pain-free. Will continue IV antibiotics right now. Possible discharge once cleared by Urology DVT prophylaxis. GI prophylaxis. All records reviewed Discussed plan of care with the nursing staff and with the patient in detail. Answered all questions and concerns from the patient. All labs have been reviewed. Code status updated dictation may have been done utilizing a voice recognition system. Attempts have been made to correct errors. However, there may be uncorrected grammatical, spelling, and recognition errors present. Subjective Date/time seen: 09/11/22 10:52 Interval history: Low back pain much better status post stent placement for renal stone Exam Narrative: GENERAL: Well appearing, well-nourished, non-toxic, in no acute distress. HEAD: Normocephalic, atraumatic. NECK: Supple. No adenopathy, no masses. RESPIRATORY: Airway patent, respirations nonlabored. Clear to auscultation bilaterally, no rales, rhonchi, wheezing. CARDIOVASCULAR: Regular rate and rhythm without murmurs, rubs, or gallops. Peripheral pulses 2+ and equal bilaterally. ABDOMINAL: Soft, nontender, nondistended, no hepatosplenomegaly. Normoactive BS. MUSCULOSKELETAL: no Epigastric and no hypochondrial tenderness SKIN: Warm, dry, normal color. No rashes. NEURO: A&O X3. Moves all extremities PSYCHIATRIC: Appropriate mood and affect. Normal interaction. Objective Data Vital Signs Vital Signs: Vital Signs - 24 hr 09/10/22 12:02 09/10/22 12:03 09/10/22 14:00 Temperature 36.6 C 35.9 C L Pulse Rate 66 66 67 Respiratory Rate 18 18 Blood Pressure 142/101 H 125/75 Pulse Oximetry 100 97 Oxygen Delivery Room Air Oxygen Flow Rate 09/10/22 14:59 09/10/22 16:07 09/10/22 17:42 Temperature 36.2 C L 36.4 C 36.6 C Pulse Rate 77 62 61 Respiratory Rate 22 H 20 21 H Blood Pressure 141/98 H 136/95 H 126/75 Pulse Oximetry 100 100 100 Oxygen Delivery Room Air Simple Face Mask Oxygen Flow Rate 6 09/10/22 17:55 09/10/22 18:05 09/10/22 18:13 Temperature Pulse Rate 60 53 L 55 L Respiratory Rate 13 13 16 Blood Pressure 100/69 116/65 109/74 Pulse Oximetry 100 100 99 Oxygen Delivery Simple Face Mask Room Air Room Air Oxygen Flow Rate 6 09/10/22 18:25 09/10/22 18:40 09/10/22 20:04 Temperature 36.0 C L 35.8 C L 36.2 C L Pulse Rate 63 51 L 51 L Respiratory Rate 18 18 18 Blood Pressure 124/81 147/82 H 143/92 H Pulse Oximetry 100 97 96 Oxygen Delivery Oxygen Flow Rate 09/10/22 20:00 09/10/22 23:15 09/11/22 04:00 Temperature 36.2 C L 36.3 C L 36.5 C Pulse Rate 51 L 54 L 54 L Respiratory Rate 18 18 18 Blood Pressure 143/93 H 111/68 110/71 Pulse Oximetry 96 95 98 Oxygen Delivery Oxygen Flow Rate 09/11/22 04:05 09/11/22 08:00 09/11/22 10:16 Temperature 36.5 C 37.0 C 36.8 C Pulse Rate 54 L 52 L 58 L Respiratory Rate 18 16 16 Blood Pressure 110/71 122/84 125/84 Pulse Oximetry 98 100 100 Oxygen Delivery Room Air Oxygen Flow Rate Intake/Output Intake/Output: Intake & Output 09/08/22 09/09/22 09/10/22 09/11/22 23:59 23:59 23:59 23:59 Intake Total 1450 0 Output Total 600 Balance 850 0 Meds/Results Medications: Active Medications Generic Name Dose Route Start Last Admin Trade Name Freq PRN Reason Stop Dose Admin Acetaminophen 650 mg 09/10/22 13:56 09/11/22 04:00 Acetaminophen 325 Mg Tablet PO 650 mg Q4H PRN Administration Mild Pain (1-3) or Fever Do
--- NOTE | 2022-09-11 11:10 | WPDHPUPDATE1 ---
History and Physical Update Update Date/Time: 09/11/22 11:10 History and Physical has been reviewed, including an updated exam of the patient. There are NO changes in the patient's condition. Risks, benefits, and alternatives have been discussed and questions answered. Patient agrees to proceed with procedure. Plan today: left ESWL
--- NOTE | 2022-09-11 12:04 | W.PM.PROC2 ---
Procedure Note - Detailed Date of Procedure 09/11/22 Pre-op Diagnosis Left kidney stone Post-op Diagnosis Same Procedure Performed Left ESWL Surgeon Dayton Miller MD Anesthesia General Description of Procedure The patient was brought to the operative suite where he was placed in the supine position on the Dornier lithotripsy table. The focal point of the lithotripter was placed at a 13mm left renal pelvic calculus. A total of 2500 shocks were delivered at a power setting of 4. There appeared to be good fragmentation of the stone. The patient tolerated the procedure well and was taken to the recovery room in good condition. Urine Output 300 Packing No Pathology Yes Complications No immediate complications Condition Stable Disposition PACU
[2022-09-11] MEDS: LACTATED RINGERS 1,000 ML 30 ML IV CONT (12:34)
[2022-09-11] MEDS: ONDANSETRON INJ 4 MG/2 ML VIAL IV PUSH (12:41)
[2022-09-11] MEDS: DOCUSATE SODIUM 100 MG CAPSULE PO (14:53)
--- NOTE | 2022-09-11 15:10 | SUR.PHASEI ---
1330: Patient told RN she didn't have to call and give an update to mom at this time.
--- NOTE | 2022-09-11 16:29 | PM.DS ---
DS: Admitting Diagnosis Discharge Date 09/11/22 Admitting Diagnosis hydronephrosis DS: Discharge Diagnosis Discharge Diagnosis (1) Renal calculus, left: Code(s): N20.0 - Calculus of kidney Status: Acute (2) Depression: Code(s): F32.9 - Major depressive disorder, single episode, unspecified Status: Acute (3) Hypothyroid: Code(s): E03.9 - Hypothyroidism, unspecified Status: Acute (4) Flank pain: Code(s): R10.9 - Unspecified abdominal pain Status: Acute (5) Chronic cholecystitis with calculus: Code(s): K80.10 - Calculus of gallbladder with chronic cholecystitis without obstruction Status: Acute DS: Summary Hospital Course Hospital Course: pt admitted for flank pain. saw urology and a lithotripsy and S/p stent Time spent discussing smoking cessation with patient: more than 10 minutes Status at Discharge Functional status at discharge: independent ambulation Overall status at discharge: patient is back to baseline Time Spent with Patient Time attestation: Total time spent providing and/or coordinating discharge services: Exam Const: General: comfortable HENMT: Ears: TM's normal bilaterally Mouth: Yes moist mucous membranes Eyes: General: appearance normal, both eyes and all related structures Pupils: Equal, round and reactive pupils present Neck: Neck: supple and no JVD Resp: Effort & Inspection: normal respiratory effort Auscultation: clear to auscultation bilaterally Cardio: Rate: regular rate Rhythm: regular rhythm GI: GI Palp: Yes Soft to palpation, No Tenderness to palpation present (GI) and No Guarding due to palpation present (GI) : External Female Exam: normal external appearance Neuro: General: gait normal Motor exam (neuro): 5/5 motor strength present throughout Sensory Exam: normal sensation Extrem: General: normal to inspection and no pedal edema DS: Data Data Completed and Pending Labs on day of discharge: Labs from last 24 hours 09/10/22 09/10/22 14:41 14:41 Free T4 1.51 Total T3 1.12 Preliminary micro results at discharge 09/10/22 18:50 Blood Culture - Preliminary Blood Discharge Plan Discharge Attending physician on discharge: Lam Pandey Consulting providers: Dayton Miller Discharging Clinician: Dayton Miller Patient Disposition: Home Health Service Activity: other - see discharge instructions Diet: other - see discharge instructions Discharge Instructions: 1) Activity: No driving or important decisions [id number]. No lifting/straining >15lbs. [id number]. 2) Strain urine until one stone fragment retrieved. Bring that fragment to your follow-up visit. 3) Diet: resume normal pre-admission diet. 4) Follow-up: 2-3 weeks with [facility] / call for appointment ([phone]) Patient Instructions: Antibiotic Form Stand Alone Forms: General Discharge Information Follow-up/Referrals: Dayton Miller MD [Physician] - Discharge Medications: New hydrocodone-acetaminophen 5-325 mg tablet 1 - 2 tablet PO Q6H PRN (Reason: pain) Qty: 24 0RF sulfamethoxazole-trimethoprim 800-160 mg tablet 1 tablet PO Q12H Qty: 6 0RF Continued Zoloft tablet 75 mg PO DAILY Synthroid 100 mcg PO DAILY ferrous fumarate 325 mg (106 mg iron) Tablet 325 mg PO DAILY Other Ambulatory Orders: XR abdomen/kub 1V (Routine) Timeframe: 2 Weeks Location: Determined by Patient Ordered By: Dayton Miller Date of admission: 09/10/22 13:56 Primary Care Provider: AURORA, Admitting Provider: Lam Pandey Attending physician on admission: Lam Pandey Condition: Improved
== END 2022-09-11 17:25 | disposition home or self-care (01) | DRG 660 ==
PROVIDERS: Nurse Practitioner Adult Health; Urology; Admitting Provider Internal Medicine; Visit Provider Internal Medicine
PROC: 0T778DZ Dilation of Left Ureter with Intraluminal Device, Via Natural or Artificial Opening Endoscopic (ICD-10-PCS; CPT 52352; principal; 2022-09-10 17:30)
PROC: 0TC48ZZ Extirpation of Matter from Left Kidney Pelvis, Via Natural or Artificial Opening Endoscopic (ICD-10-PCS; CPT 50590; principal; 2022-09-11 11:30)
DX: N20.2 Calculus of kidney with calculus of ureter (principal); K80.10 Calculus of gallbladder with chronic cholecystitis without obstruction; F32.9 Major depressive disorder, single episode, unspecified; E03.9 Hypothyroidism, unspecified; I10 Essential (primary) hypertension; Z79.899 Other long term (current) drug therapy; Z79.52 Long term (current) use of systemic steroids; Z79.890 Hormone replacement therapy; Z88.0 Allergy status to penicillin; Z87.891 Personal history of nicotine dependence; Z83.3 Family history of diabetes mellitus; Z80.43 Family history of malignant neoplasm of testis; Z82.49 Family history of ischemic heart disease and other diseases of the circulatory system
CPT/HCPCS: 36415; 74420; 80053; 81001; 84439; 84443; 84480; 85027; 87040; 87086; A9270; C1758; C1769; C2617; G0378; G0379; J0131; J0330; J0690; J1100; J1170; J2250; J2270; J2405; J2704; J3010; J3360; J7030; J7120

== ENCOUNTER 2022-09-18 10:42 | Emergency (ER) | payer OTHER, SELFPAY ==
[2022-09-18 11:21] VITALS: BP 136/95; PULSE 70; RESP 16; TEMP 36.8; O2SAT 100
[2022-09-18 11:39] LABS: Appearance Urine Clear (Clear); Bilirubin Urine Negative (Negative); Blood Urine 3+ (Negative); Color Urine Yellow (Yellow); Glucose Urine UA Negative (Negative); Ketones Urine Negative (Negative); Leukocyte Esterase Ur 1+ LEU/UL (Negative); Nitrate Urine Negative (Negative); Protein Urine 2+ mg/dL (Negative); Urobilinogen Urine 0.2 mg/dL (<2.0); pH Urine >=9.0 (5.0-9.0)
[2022-09-18 11:40] LABS: Basophils Absolute Auto 0.1 K/mm3 (0.0-0.1); Basophils Percent Auto 0.6 % (0.2-1.2); Eosinophils Absolute Auto 0.2 K/mm3 (0-0.3); Eosinophils Percent Auto 1.5 % (0-4.4); Hematocrit 38.1 % (37.0-47.0); Hemoglobin 12.6 g/dL (12.0-15.0); Immature Granulocyte Absolute 0.05 K/mm3 (0.00-0.031); Immature Granulocyte Percent A 0.4 % (0-0.5); Lymphocytes Absolute Auto 1.52 K/mm3 (0.9-3.2); Lymphocytes Percent Auto 12.8 % (18.3-44.2); Mean Corpuscular HGB Conc 33.1 g/dl (32-36); Mean Corpuscular Hemoglobin 30.5 pg (26-34); Mean Corpuscular Volume 92.3 fl (80-100); Mean Platelet Volume 9.3 fl (7.4-10.4); Monocytes Absolute Auto 0.5 K/mm3 (0.1-0.6); Monocytes Percent Auto 4.2 % (2.6-8.5); Neutrophils Absolute Auto 9.6 K/mm3 (1.3-6.7); Neutrophils Percent Auto 80.5 % (45.5-73.1); Platelet Count Result 353 k/mm3 (150-375); Red Blood Count 4.13 M/mm3 (4.2-5.4); Red Cell Distribution Width 13.6 % (11.5-14.5); White Blood Count 11.9 K/mm3 (4.5-10.0)
[2022-09-18 11:44] LABS: Mucus Urine Rare /lpf; RBC Urine >75 /hpf (0-2); WBC Urine 21-30 /hpf
[2022-09-18 11:45] LABS: Add Urine Microscopic? YES
[2022-09-18 11:49] LABS: Alanine Aminotransferase 20 U/L (6-35); Albumin Level 4.3 g/dL (3.5-5.1); Alkaline Phosphatase 67 U/L (38-126); Anion Gap 10 mmol/L (8-16); Aspartate Amino Transferase 18 U/L (14-36); Bilirubin,Total 0.4 mg/dL (0.2-1.3); Blood Urea Nitrogen 15 mg/dL (7-17); Calcium 9.2 mg/dL (8.4-10.2); Carbon Dioxide 23 mmol/L (22-30); Chloride 110 mmol/L (98-107); Estimated CRCL calculation 102 ml/min; Estimated Glomerular Filt Rate > 60; Glucose 89 mg/dL (65-110); Lipase 77 U/L (23-300); Potassium 3.4 mmol/L (3.4-5.0); Sodium 143 mmol/L (137-145)
[2022-09-18 12:18] VITALS: BP 123/85; PULSE 61; RESP 14; O2SAT 100
[2022-09-18 12:19] VITALS: BP 123/85; PULSE 65; RESP 17; O2SAT 100
[2022-09-18 12:30] VITALS: BP 136/101; PULSE 68; RESP 15; O2SAT 99
--- NOTE | 2022-09-18 12:33 | ED.NAVMDI ---
HPI - Nausea/Vomiting/Diarrhea General Chief complaint: Nausea/Vomiting/Diarrhea Stated complaint: VOMITING/HEMATURIA/RECENT KIDNEY STONE SURGERY Time Seen by Provider: 09/18/22 12:15 History of Present Illness HPI Narrative: Patient is a 32-year-old female with a history of hypothyroidism, nephrolithiasis presenting with vomiting and hematuria. Patient states that she recently had lithotripsy done for a left renal stone approximately a week ago. States that she was sent home on antibiotics which she stopped taking after 1 day. States that she has had constant 3-4 out of 10 pain in her left flank since that time. She woke up this morning and had several episodes of vomiting and then felt lightheaded. States that she also had recurrence of her hematuria this morning. Patient has not spoken with her urologist. She denies fevers, chest pain, shortness of breath, cough, abdominal pain, diarrhea. States that she has had some pain with urination which has been constant since the procedure. Related Data Home Medications Medication Instructions Recorded Confirmed Synthroid 100 mcg PO DAILY 09/25/19 09/10/22 Zoloft 75 mg PO DAILY 09/25/19 09/10/22 ferrous fumarate 325 mg (106 mg 325 mg PO DAILY 09/10/22 09/10/22 iron) tablet Allergies Allergy/AdvReac Type Severity Reaction Status Date / Time Penicillins Allergy Severe Difficulty Verified 09/18/22 11:26 Breathing Review of Systems Review of Systems: All systems reviewed & are unremarkable except as noted in HPI and below PMFSH Past Medical History Medical History Depression Flank pain Hypothyroid Family History Family History Mother Hypertension Grandparent Cerebrovascular accident Grandparent Diabetes mellitus Grandparent Multiple myeloma Father Multiple myeloma Other Testicular cancer Social History Social History Smoking packs per day: 0.5 Smoking cigarettes per day: 10.0 Years smoked: 2 Smoking pack-years: 1.00 Smoking status: Former smoker Second hand tobacco smoke exposure: No Alcohol intake: current Drinks per week: 1 Substance use: current Substance use type: marijuana Lack of Transportation: No Lack of Food: Never True Current Housing: I Have Housing Concerned About Future Housing: No Difficulty Paying Gas/Electric Bills: No Difficulty Paying for Meds: No Currently Unemployed: No Education: Bachelor's Degree Difficulty w/ Childcare or Family Care: No Gender identity (if verbalized by the patient): Female Spiritual care concerns: No Agree to blood products: Yes Exam Narrative: GENERAL: Well-appearing, well-nourished, and in no acute distress. HEAD: Normocephalic, atraumatic. EYES: PERRLA and EOMI. ENT: Nares clear, no rhinorrhea or epistaxis. Mucous membranes moist. NECK: Supple. CHEST: Clear to auscultation. No respiratory distress. HEART: Regular rate and rhythm. No murmur heard. Normal peripheral pulses. ABDOMEN: Soft, nontender, nondistended, normal active bowel sounds. EXTREMITIES: Normal range of motion. No edema. SKIN: Warm, dry, no rash. NEURO: No focal deficits. Alert and oriented x3. PSYCH: Normal mood and affect. Course Vital Signs Vital signs: Vital Signs Temperature 98.2 F 09/18/22 11:21 Pulse Rate 70 09/18/22 11:21 Respiratory Rate 16 09/18/22 11:21 Blood Pressure 136/95 H 09/18/22 11:21 Pulse Oximetry 100 09/18/22 11:21 Temperature 98.2 F 09/18/22 11:21 Pulse Rate 70 09/18/22 14:20 Respiratory Rate 16 09/18/22 14:20 Blood Pressure 130/88 09/18/22 14:20 Pulse Oximetry 100 09/18/22 14:20 MDM - Nausea/Vomiting/Diarrhea MDM Narrative Medical decision making narrative: Patient is a 32-year-old female presenting with nausea and recurrence of hematuri
[2022-09-18 12:59] VITALS: PULSE 55; RESP 8; O2SAT 100
[2022-09-18] MEDS: ONDANSETRON INJ 4 MG/2 ML VIAL IV PUSH (12:59)
[2022-09-18] MEDS: SODIUM CHLORIDE 0.9% IV 1,000 ML 999 ML IV CONT (12:59)
[2022-09-18 13:32] LABS: Pregnancy On Board Control Positive; Urine Pregnancy Test Negative
[2022-09-18 14:20] VITALS: BP 130/88; PULSE 70; RESP 16; O2SAT 100
== END 2022-09-18 14:25 | disposition home or self-care (01) ==
PROVIDERS: General Practice; Emergency Provider Emergency Medicine
DX: R11.2 Nausea with vomiting, unspecified (principal); R31.9 Hematuria, unspecified; E03.9 Hypothyroidism, unspecified; Z87.442 Personal history of urinary calculi
CPT/HCPCS: 36415; 80053; 81001; 81025; 83690; 85025; 87086; 96361; 96365; 96375; 99284; J0696; J2405; J7030

== ENCOUNTER 2022-10-20 10:03 | Outpatient (CLI) | payer OTHER, SELFPAY ==
--- NOTE | ~2022-10-20 | XR_ITS ---
Supine and upright views of the abdomen Clinical history: Left ureteral stone, status post lithotripsy 6 weeks ago COMPARISON: 09/10/2022 Findings: Bowel gas pattern is nonspecific. No evidence for obstruction or free air. Left ureteral st ent in place. Small left renal stones are similar to prior exam. The larger stone in the left renal p elvic region or proximal left ureter on prior exam is no longer clearly visualized. Possible small st one fragment at the level of the proximal ureteral stent. Osseous structures are intact. Impression: Stable small left renal stones. Larger stone at the left renal pelvis/proximal ureter on prior exam is no longer visualized, presumab ly due to interval lithotripsy. Possible small stone fragment at the level of the proximal ureteral s tent. Reviewed, dictated and finalized at location M. ATOR OPERATOR Impression: Stable small left renal stones. Larger stone at the left renal pelvis/proximal ureter on prior exam is no longe r visualized, presumably due to interval lithotripsy. Possible small stone frag ment at the level of the proximal ureteral stent.
== END 2022-10-20 10:04 | disposition home or self-care (01) ==
PROVIDERS: Visit Provider Urology
DX: N20.1 Calculus of ureter (principal); N20.0 Calculus of kidney
CPT/HCPCS: 74018

== ENCOUNTER 2023-08-05 19:26 | Emergency (ER) | payer OTHER, SELFPAY ==
[2023-08-05 20:21] VITALS: BP 123/86; PULSE 78; RESP 16; TEMP 36.6; O2SAT 100
[2023-08-05 21:41] LABS: Basophils Absolute Auto 0.1 K/mm3 (0.0-0.1); Basophils Percent Auto 0.5 % (0.2-1.2); Eosinophils Absolute Auto 0.2 K/mm3 (0-0.3); Eosinophils Percent Auto 1.9 % (0-4.4); Hemoglobin 11.2 g/dL (12.0-15.0); Immature Granulocyte Absolute 0.05 K/mm3 (0.00-0.031); Immature Granulocyte Percent A 0.5 % (0-0.5); Lymphocytes Absolute Auto 2.75 K/mm3 (0.9-3.2); Mean Corpuscular HGB Conc 33.9 g/dl (32-36); Mean Corpuscular Hemoglobin 31.4 pg (26-34); Mean Corpuscular Volume 92.4 fl (80-100); Mean Platelet Volume 9.3 fl (7.4-10.4); Monocytes Absolute Auto 0.9 K/mm3 (0.1-0.6); Monocytes Percent Auto 8.4 % (2.6-8.5); Neutrophils Absolute Auto 6.3 K/mm3 (1.3-6.7); Neutrophils Percent Auto 61.7 % (45.5-73.1); Platelet Count Result 307 k/mm3 (150-375); Red Blood Count 3.57 M/mm3 (4.2-5.4); White Blood Count 10.2 K/mm3 (4.5-10.0)
[2023-08-05 22:32] LABS: Alanine Aminotransferase 14 U/L (6-35); Alkaline Phosphatase 48 U/L (38-126); Anion Gap 5 mmol/L (8-16); Aspartate Amino Transferase 19 U/L (14-36); Bilirubin,Total 0.3 mg/dL (0.2-1.3); Blood Urea Nitrogen 15 mg/dL (7-17); Calcium 9.4 mg/dL (8.4-10.2); Carbon Dioxide 26 mmol/L (22-30); Chloride 103 mmol/L (98-107); Estimated CRCL calculation 90 ml/min; Estimated Glomerular Filt Rate > 60; Glucose 87 mg/dL (65-110); Potassium 3.8 mmol/L (3.4-5.0); Sodium 134 mmol/L (137-145)
--- NOTE | 2023-08-05 23:34 | PC.NURSE ---
no answer at triage for vs
== END 2023-08-06 01:33 | disposition left against medical advice (07) ==
LOC: ANHED 23:58
PROVIDERS: Emergency Provider General Practice
DX: O26.899 Other specified pregnancy related conditions, unspecified trimester (principal); M54.50 Low back pain, unspecified
CPT/HCPCS: 36415; 80053; 84702; 85025; 85461; 86850; 86900; 86901; 99199